=== PATIENT | female | born 1955 | race Caucasian/White ===

== ENCOUNTER 2019-09-26 11:48 | Outpatient (CLI) | payer MEDICARE, SELFPAY ==
--- NOTE | 2019-09-26 12:14 | CT_ITS ---
WS: [id number] CT ABDOMEN PELVIS TECHNIQUE: Noncontrast CT of the abdomen and pelvis with coronal and sagittal reformatted images. CLINICAL INFORMATION: LEFT FLANK PAIN COMPARISON: None. DLP: 438.[address] scans at [facility] use at least one of these dose optimization techniques: automat ed exposure control; mA and/or kV adjustment per patient size (includes targeted exams Where dose is matched to clinical indication); or iterative reconstruction. FINDINGS: Noncontrast liver is normal. Normal noncontrast spleen. Normal GE junction. Lung bases are well aerat ed. Adrenal glands are normal. No hydronephrosis. No obstructing renal parenchymal calculi. No obstru cting ureteral calculi. Mild aortic calcification. Dense sigmoid constipation. Small amount of free fluid in the pelvis. No abdominal or inguinal lymphadenopathy. Prior postoperati ve hysterectomy. CT/CT kidney stone [id number] IMPRESSION: 1. Prior postoperative hysterectomy. 2. No hydronephrosis. No obstructing renal or ureteral calculi. 3. Dense sigmoid constipation. 4. Small amount of free fluid in the pelvis. 5. Normal caliber abdominal aorta. 6. No other significant findings.
== END 2019-09-26 11:49 | disposition home or self-care (01) ==
LOC: RADWPI 11:56 → RAD 12:05
PROVIDERS: PCP Family Medicine; Visit Provider Family Medicine
DX: R10.9 Unspecified abdominal pain (principal); R31.29 Other microscopic hematuria; K59.00 Constipation, unspecified
CPT/HCPCS: 74176

== ENCOUNTER 2020-08-18 10:49 | Outpatient (CLI) | payer MEDICARE, SELFPAY ==
--- NOTE | 2020-08-18 11:05 | XR_ITS ---
WS: [id number] SCREENING DEXA SCAN [facility] CLINICAL INFORMATION: POSTMENOPAUSAL OSTEROPOROSIS COMPARISON: 018 FINDINGS: The L1-L4 bone mineral density measures 0.897 g/cm2. This corresponds to a T score score of -2.4 and Z score of -0.2. Left femoral neck bone mineral density measures 0.800 g/cm2. This corresponds to a T score of -1.7 an d Z score of -0.1. Right femoral neck bone mineral density measures 0.813 g/cm2. This corresponds to a T score -1.5of an d Z score of 0.0. Mean femoral neck bone mineral density measures 0.806 g/cm2. This corresponds to a T score of -1.6 an d Z score of 0.0. XR/XR DEXA axial skeleton* [id number] IMPRESSION: Osteopenia lumbar spine at the upper end of the range approaching osteoporosis. Osteopenia in the femoral necks. Patient's FRAX calculated 10 year probability for major osteoporotic fracture i s 13.4 % and osteoporotic hip fracture is 2.8%.
== END 2020-08-18 10:50 | disposition home or self-care (01) ==
LOC: RADWPI 10:55
PROVIDERS: PCP Family Medicine; Visit Provider Family Medicine
DX: M81.0 Age-related osteoporosis without current pathological fracture (principal); M85.88 Other specified disorders of bone density and structure, other site
CPT/HCPCS: 77080

== ENCOUNTER 2021-04-21 11:05 | Outpatient (CLI) | payer BC, SELFPAY ==
--- NOTE | 2021-04-21 11:13 | MM_ITS ---
WS: [id number] BILATERAL SCREENING 3D TOMOSYNTHESIS DIGITAL MAMMOGRAM WITH CAD HISTORY: SCREENING COMPARISON: 01/29/2018 and 09/17/2014 Bilateral CC and MLO views submitted. Computer aided detection analyzed. Breast composition: The breasts are heterogeneously dense, which may obscure small masses. No suspici ous masses, microcalcifications or architectural distortion. Benign vascular calcifications in each b reast. MM/[place] [id number] IMPRESSION: BI-RADS: 2-Benign FOLLOW UP: 1 Year Follow-up
== END 2021-04-21 11:06 | disposition home or self-care (01) ==
PROVIDERS: PCP Family Medicine; Visit Provider Family Medicine
DX: Z12.31 Encounter for screening mammogram for malignant neoplasm of breast (principal)
CPT/HCPCS: 77063; 77067

== ENCOUNTER 2023-11-07 12:51 | Outpatient (CLI) | payer MEDICARE, SELFPAY ==
--- NOTE | 2023-11-07 13:02 | MM_ITS ---
WS: [id number] BILATERAL 3D TOMOSYNTHESIS DIGITAL SCREENING MAMMOGRAPHY WITH CAD CLINICAL INFORMATION: SCREENING HISTORY: Screening mammogram. No current complaints. COMPARISON: 04/21/2021 TECHNIQUE: Bilateral CC and MLO views. FINDINGS: The breasts are composed of heterogeneous fibroglandular density tissue, which can limit the detectio n of small underlying mass lesions. No suspicious mass, asymmetry, calcifications, or architectural d istortion. No evidence of malignancy. Vascular calcifications. MM/MM [facility] tomosynthesis [id number] IMPRESSION: DENSITY: The breasts are heterogeneously dense, which may obscure small masses. BI-RADS: 2 - Benign FOLLOW UP: 1 Year Follow-up Recommend return to annual screening mammography.
== END 2023-11-07 12:52 | disposition home or self-care (01) ==
LOC: RAD 12:53
PROVIDERS: PCP Family Medicine; Visit Provider Family Medicine
DX: Z12.31 Encounter for screening mammogram for malignant neoplasm of breast (principal); R92.333 Mammographic heterogeneous density, bilateral breasts; R92.1 Mammographic calcification found on diagnostic imaging of breast
CPT/HCPCS: 77063; 77067

== ENCOUNTER 2024-03-07 14:14 | Outpatient (CLI) | payer MEDICARE, SELFPAY ==
--- NOTE | 2024-03-07 14:26 | XR_ITS ---
WS: [id number] Left hip, AP and frog-leg views, 03/07/2024 Clinical Data: LEFT HIP PAIN Comparison: None. Findings: No fractures or dislocations are seen. The left hip shows no erosion, narrowing, sclerosis, cyst form ation or fragmentation of the left femoral head. The soft tissues are not remarkable. The adjacent pe lvis is normal. XR/XR hip LT 2-3V wo/w pel* [id number] Impression: Negative left hip.
== END 2024-03-07 14:15 | disposition home or self-care (01) ==
LOC: RAD 14:16
PROVIDERS: PCP Family Medicine; Visit Provider Family Medicine
DX: S77.02 Crushing injury of left hip (principal); X58.XXXS Exposure to other specified factors, sequela
CPT/HCPCS: 73502

== ENCOUNTER 2024-03-13 14:17 | Outpatient (CLI) | payer MEDICARE, SELFPAY ==
--- NOTE | 2024-03-13 14:21 | XR_ITS ---
WS: [id number] SCREENING DEXA SCAN [employer] CLINICAL INFORMATION: POSTMENOPAUSAL COMPARISON: 2020 FINDINGS: The L1-L4 bone mineral density measures 0.970 g/cm2. This corresponds to a T score score of -1.7 and Z score of 0.4. Left femoral neck bone mineral density measures 0.821 g/cm2. This corresponds to a T score of -1.5 an d Z score of 0.2. Right femoral neck bone mineral density measures 0.831 g/cm2. This corresponds to a T score -1.4of an d Z score of 0.3. Mean femoral neck bone mineral density measures 0.826 g/cm2. This corresponds to a T score of -1.4 an d Z score of 0.3. XR/XR DEXA axial skeleton* [id number] IMPRESSION: Osteopenia lumbar spine. Osteopenia femoral necks Patient's FRAX calculated 10 year probability for major osteoporotic fracture i s 8.4% and osteoporotic hip fracture is 1.7%. Bone marrow density lumbar spine increased 8.1% bone marrow density femoral necks increased 2.5%
== END 2024-03-13 14:18 | disposition home or self-care (01) ==
LOC: RAD 14:19
PROVIDERS: PCP Family Medicine; Visit Provider Family Medicine
DX: M81.0 Age-related osteoporosis without current pathological fracture (principal); M85.89 Other specified disorders of bone density and structure, multiple sites
CPT/HCPCS: 77080

== ENCOUNTER 2024-05-06 11:02 | Oncology outpatient (recurring) (ONCR) | payer MEDICARE, SELFPAY ==
[2024-05-06] MEDS: denosumab 60 mg SDV SUBCUT (11:22)
== END 2024-05-12 23:59 | disposition home or self-care (01) ==
PROVIDERS: PCP Family Medicine; Visit Provider Family Medicine
DX: M81.0 Age-related osteoporosis without current pathological fracture (principal); Z79.899 Other long term (current) drug therapy
CPT/HCPCS: 96401; J0897

== ENCOUNTER 2024-11-03 09:07 | Oncology outpatient (recurring) (ONCR) | payer MEDICARE, SELFPAY ==
[2024-11-03] MEDS: denosumab 60 mg SDV (Infusion Clinic Only) SUBCUT (09:20)
== END 2024-11-11 23:59 | disposition home or self-care (01) ==
LOC: ONCMED 09:08
PROVIDERS: PCP Family Medicine; Visit Provider Family Medicine
DX: M81.0 Age-related osteoporosis without current pathological fracture (principal); Z79.899 Other long term (current) drug therapy
CPT/HCPCS: 96372; J0897

== ENCOUNTER 2024-12-30 13:12 | Outpatient (CLI) | payer MEDICARE, SELFPAY ==
--- NOTE | 2024-12-30 13:22 | XRR_ITS ---
PROCEDURE INFORMATION: Exam: XR Cervical Spine Exam date and time: 12/30/2024 1:32 PM Age: 69 years old Clinical indication: Neck pain in distal portion of c-spine x 5 [id number] TECHNIQUE: Imaging protocol: Radiologic exam of the cervical spine. Views: 2 or 3 views. COMPARISON: No relevant prior studies available. FINDINGS: Bones/joints: Mild diffuse osteopenia. Disc space narrowing and spurring C4 through C7. No fracture. No acute fracture. Normal alignment. Soft tissues: Unremarkable. XR/XR cervical spine 3V* [id number] IMPRESSION: No acute findings.
== END 2024-12-30 13:13 | disposition home or self-care (01) ==
PROVIDERS: PCP Family Medicine
DX: M50.30 Other cervical disc degeneration, unspecified cervical region (principal); M85.88 Other specified disorders of bone density and structure, other site; M48.02 Spinal stenosis, cervical region
CPT/HCPCS: 72040